=== PATIENT | male | born 1990 | race African-American/Black ===

== ENCOUNTER 2017-02-23 15:37 | Emergency (ER) | payer SELFPAY ==
[2017-02-23 15:47] VITALS: BP 166/95
[2017-02-23] MEDS ORDERED: KETOROLAC TROMETHAMINE 0.45% 4 DROP/0.4 ML DROPERETTE OD ONE (16:08)
--- NOTE | 2017-02-23 16:15 | ER Document Report ---
ED Eye Complaint - General Chief Complaint: Eye Pain Stated Complaint: EYE PAIN Time Seen by Provider: 02/23/17 16:03 Notes: 27 yo male c/o right eye burning x several hours. pt washed contact with eye care plus cleaning solution and replaced contact into eye. eye immediately started burning. TRAVEL OUTSIDE OF THE [place] IN LAST 30 DAYS: No - HPI Onset: Just prior to arrival Occurred at: Home Quality of pain: Burning Contact lenses: Soft Associated symptoms: Burning, Other - tearing. denies: Eyelid swelling, Orbital swelling - Related Data Allergies/Adverse Reactions: No Known Allergies Allergy (Verified 02/23/17 15:45) Past Medical History - General Information source: Patient - Social History Smoking Status: Never Smoker Drug Abuse: None Lives with: Family Family History: Reviewed & Not Pertinent - Past Medical History Cardiac Medical History: Denies: Hx Coronary Artery Disease, Hx Heart Attack, Hx Hypertension Pulmonary Medical History: Denies: Hx Asthma, Hx Bronchitis, Hx COPD, Hx Pneumonia Neurological Medical History: Denies: Hx Cerebrovascular Accident Renal/ Medical History: Denies: Hx Peritoneal Dialysis Musculoskeltal Medical History: Denies Hx Arthritis - Immunizations Hx Diphtheria, Pertussis, Tetanus Vaccination: Yes Review of Systems - Review of Systems Constitutional: No symptoms reported EENT: Eye pain, Tearing Cardiovascular: No symptoms reported Respiratory: No symptoms reported Gastrointestinal: No symptoms reported Genitourinary: No symptoms reported Male Genitourinary: No symptoms reported Musculoskeletal: No symptoms reported Skin: No symptoms reported Hematologic/Lymphatic: No symptoms reported Neurological/Psychological: No symptoms reported Physical Exam - Vital signs Vitals: Temp Pulse Resp BP Pulse Ox 98.1 F 80 16 166/95 H 99 02/23/17 15:45 02/23/17 15:45 02/23/17 15:45 02/23/17 15:45 02/23/17 15:45 Interpretation: Normal - General General appearance: Appears well, Alert - HEENT Head: Normocephalic, Atraumatic Eyes: Other - right conjunctiva with marked injection. + tearing. no flourescen uptake. no periorbital edema Extraocular movements intact: Yes Pupils: PERRL Lids everted for exam: right: Normal Mucous membranes: Normal, Moist Pharynx: Normal Neck: Normal, Supple - Respiratory Respiratory status: No respiratory distress Chest status: Nontender Breath sounds: Normal Chest palpation: Normal - Cardiovascular Rhythm: Regular Heart sounds: Normal auscultation Murmur: No - Abdominal Inspection: Normal Distension: No distension Bowel sounds: Normal Tenderness: Nontender Organomegaly: No organomegaly - Back Back: Normal, Nontender - Extremities General upper extremity: Normal inspection, Nontender, Normal color, Normal ROM , Normal temperature General lower extremity: Normal inspection, Nontender, Normal color, Normal ROM , Normal temperature, Normal weight bearing. No: Jasvir's sign - Neurological Neuro grossly intact: Yes Cognition: Normal Orientation: AAOx4 [place] Coma Scale Eye Opening: Spontaneous [place] Coma Scale Verbal: Oriented [place] Coma Scale Motor: Obeys Commands Nidhi Coma Scale Total: 15 Speech: Normal Motor strength normal: LUE, RUE, LLE, RLE Sensory: Normal - Psychological Associated symptoms: Normal affect, Normal mood - Skin Skin Temperature: Warm Skin Moisture: Dry Skin Color: Normal Course - Re-evaluation Re-evalutation: 02/23/17 16:24 eye copiously irrigated with normal saline. acuvail drops applied to eye. pt reports improvement of pain. discussed patient with Dr Kitchen. Recommends Rx Acular and opthomology follow up tomorrow. pt agreeable with plan. stable for discharge - Vital Signs Vital signs: Temp Pulse Resp BP Pulse Ox 98.1 F 80 16 166/95 H 99 02/23/17 15:45 02/23/17 15:45 02/23/17 15:45 02/23/17 15:45 02/23/17 15:45 Discharge - Discharge Clinical Impression: Chemical conjunctivitis Qualifiers: Laterality: right Qualified Code(s): H10.211 - Acute toxic conjunctivitis, right eye Condition: Stable Disposition: HOME, SELF-CARE Instructions: Ketorolac Tromethamine Eye Drops ([facility]) Additional Instructions: use eye drops as prescribed follow up with opthomology tomorrow if not significantly better no contacts until eye is completely better Prescriptions: Ketorolac Tromethamine [Acular] 1 drop OD Q6H PRN #1 bottle PRN Reason: Forms: Elevated Blood Pressure, Return to Work
== END 2017-02-23 16:28 | disposition home or self-care (01) ==
LOC: ER 15:37
DX: H10.211 Acute toxic conjunctivitis, right eye (principal); H57.11 Ocular pain, right eye
CPT/HCPCS: 99283

== ENCOUNTER → 2018-01-01 | Outpatient (CLI) | payer OTHER ==
[2018-01-01 15:06] LABS: HEMATOCRIT 30.9 % (37.9-51.0); MEAN CORPUSCULAR HEMOGLOBIN 22.8 pg (27.0-33.4); MEAN CORPUSCULAR HGB CONC 32.2 g/dL (32.0-36.0); MEAN CORPUSCULAR VOLUME 71 fl (80-97); PLATELET COUNT 155 10^3/uL (150-450); RED BLOOD COUNT 4.37 10^6/uL (4.35-5.55); RED CELL DISTRIBUTION WIDTH 21.8 % (11.5-14.0); WHITE BLOOD COUNT 3.3 10^3/uL (4.0-10.5)
[2018-01-01 15:32] LABS: ANION GAP 17 (5-19); BLOOD UREA NITROGEN 114 mg/dL (7-20); CALCIUM 9.4 mg/dL (8.4-10.2); CARBON DIOXIDE 23 mmol/L (22-30); CHLORIDE 102 mmol/L (98-107); GLUCOSE 70 mg/dL (75-110); POTASSIUM 4.5 mmol/L (3.6-5.0)
[2018-01-02 11:40] LABS: HEPATITIS B CORE AB TOT Negative (Negative)
[2018-01-05 11:38] LABS: HEPATITIS C VIRUS AB 0.1 s/co ratio (0.0-0.9)
[2018-01-05 13:00] LABS: HEPATITIS B SURFACE AB QUANT 9.7 mIU/mL (Immunity>9); HEPATITS B SURFACE ANTIGEN Negative (Negative)
== END ==
LOC: OD 14:00
PROVIDERS: ATTEND Internal Medicine Nephrology
DX: I12.0 Hypertensive chronic kidney disease with stage 5 chronic kidney disease or end stage renal disease (principal); N18.5 Chronic kidney disease, stage 5; D64.9 Anemia, unspecified; N04.9 Nephrotic syndrome with unspecified morphologic changes
CPT/HCPCS: 36415; 80048; 85027; 86317; 86704; 86803; 86804; 87340

== ENCOUNTER 2018-01-06 07:57 | Day surgery (SDC) | payer OTHER ==
[2017-12-30 11:01] LABS: HEMATOCRIT 35.1 % (37.9-51.0); HEMOGLOBIN 11.2 g/dL (13.5-17.0); MEAN CORPUSCULAR HEMOGLOBIN 22.7 pg (27.0-33.4); MEAN CORPUSCULAR HGB CONC 31.9 g/dL (32.0-36.0); MEAN CORPUSCULAR VOLUME 71 fl (80-97); PLATELET COUNT 189 10^3/uL (150-450); RED BLOOD COUNT 4.93 10^6/uL (4.35-5.55); RED CELL DISTRIBUTION WIDTH 22.2 % (11.5-14.0); WHITE BLOOD COUNT 3.4 10^3/uL (4.0-10.5)
[2017-12-30 11:26] LABS: CALCIUM 9.5 mg/dL (8.4-10.2); GLUCOSE 110 mg/dL (75-110)
[2017-12-30 11:31] LABS: CARBON DIOXIDE 23 mmol/L (22-30); CHLORIDE 100 mmol/L (98-107); SODIUM 145.6 mmol/L (137-145)
[2017-12-30 11:36] LABS: ANION GAP 23 (5-19)
[2017-12-30 11:37] LABS: BLOOD UREA NITROGEN 123 mg/dL (7-20)
--- NOTE | 2017-12-30 13:42 | EKG REPORT ---
SEVERITY:- BORDERLINE ECG - SINUS RHYTHM PROBABLE LEFT ATRIAL ABNORMALITY BORDERLINE LEFT AXIS DEVIATION : Confirmed by: Jeremi Ambriz MD 30-Dec-2017 13:41:18
[~2018-01-06 07:57] MED LIST: BACITRACIN INJ 50,000 UNIT VIAL ONE; BUPIVACAINE HCL 0.25 % INJ/PF (2.5 MG/1 ML) 30 ML VIAL ONE; CEFAZOLIN 1 GM/D5W RTU 1 GM/50 ML RTUPB IV PRN; HEPARIN SOD (PORCINE) 1,000 UNIT/ML 1 ML VIAL ONE; LACTATED RINGERS 1000 ML IV PRN; LIDOCAINE 0.5% INJ-PF (5 MG/ML) 50 ML SDV ONE; LIDOCAINE 0.5% INJ-PF (5 MG/ML) 50 ML SDV SUBCUT PRN; NORMAL SALINE 1000 ML (RENAL PATIENTS) IV PRN
[2018-01-06] MEDS ORDERED: GLYCOPYRROLATE INJ 0.4 MG/2 ML VIAL ONE (09:29)
[2018-01-06] MEDS ORDERED: VECURONIUM BROMIDE INJ 10 MG VIAL IV ONE (09:29)
[2018-01-06] MEDS ORDERED: NEOSTIGMINE METHYLSULFATE 10 MG/10 ML VIAL ONE (09:29)
[2018-01-06] MEDS ORDERED: SUCCINYLCHOLINE CHLORIDE INJ 200 MG/10 ML VIAL ONE (09:29)
[2018-01-06] MEDS ORDERED: FENTANYL CITRATE INJ/PF 250 MCG/5 ML AMPULE ONE (10:29)
[2018-01-06] MEDS ORDERED: LIDOCAINE 2% INJ-PF (20 MG/ML) 10 ML AMPUL ONE (10:29)
[2018-01-06] MEDS ORDERED: MIDAZOLAM 2 MG/2 ML INJ ONE (10:30)
[2018-01-06] MEDS ORDERED: ONDANSETRON HCL INJ/PF 4 MG/2 ML SDV ONE (10:30)
[2018-01-06] MEDS ORDERED: PROPOFOL INJ 200 MG/20 ML VIAL IV ONE (10:30)
[2018-01-06] MEDS ORDERED: PROMETHAZINE HCL INJ 25 MG/1 ML VIAL IV PRN ×2 (11:09)
[2018-01-06] MEDS ORDERED: MEPERIDINE HCL/PF INJ 25 MG/1 ML DISP.SYRIN IV PRN (11:09)
[2018-01-06] MEDS ORDERED: FENTANYL CITRATE INJ/PF 100 MCG/2 ML AMPUL IV PRN ×3 (11:09)
[2018-01-06] MEDS ORDERED: ONDANSETRON HCL INJ/PF 4 MG/2 ML SDV IV PRN (11:09)
[2018-01-06] MEDS ORDERED: MORPHINE SULFATE 10 MG/ML INJ IV PRN (11:09)
[2018-01-06] MEDS ORDERED: DIPHENHYDRAMINE HCL 50 MG/ML VIAL IV PRN (11:09)
[2018-01-06] MEDS ORDERED: OXYCODONE-ACETAMINOPHEN 5-325 MG TABLET PO PRN ×2 (11:09)
--- NOTE | 2018-01-06 11:51 | Discharge Summary ---
Discharge Summary (SDC) - Discharge Final Diagnosis: End-stage renal disease. Hypertension. Date of Surgery: 01/06/18 Discharge Date: 01/06/18 Condition: Good Treatment or Instructions: Discharge home [after recovery per ASU criteria]. Diet , [renal],as tolerated, when fully awake advance as tolerated. Activities within moderation encouraged. Follow up in my office by appointment in about [1 week]. Call for appointment. Leave wounds [covered], [keep clean and dry, until office visit in 1 week]. Hold of on school/work [until evaluation in office]. Meds per med rec. Percocet. May shower [in 48 hrs], [try to keep operated area as dry as possible]. Prescriptions: Oxycodone HCl/Acetaminophen [Percocet 5-325 mg Tablet] 1 tab PO ASDIR PRN #15 tab PRN Reason: Discharge Diet: Other (Comments) - Renal. Respiratory Treatments at Home: Deep Breathing/Coughing Discharge Activity: Activity As Tolerated Report the Following to Your Physician Immediately: Unusual Bleeding
--- NOTE | 2018-01-06 11:53 | Operative Report ---
Operative Report DATE OF SURGERY: 01/06/18 PREOPERATIVE DIAGNOSIS: End-stage renal disease. Hypertension. POSTOPERATIVE DIAGNOSIS: End-stage renal disease. Hypertension. OPERATION: Laparoscopic insertion of peritoneal dialysis catheter. SURGEON: ARMOND GOLDBERG STRAPPER OPERATOR: ZO TAPIA ANESTHESIA: GA TISSUE REMOVED OR ALTERED: Not applicable. COMPLICATIONS: None. ESTIMATED BLOOD LOSS: 10 mL. INTRAOPERATIVE FINDINGS: A fairly pristine abdomen. Small omentum. Some adhesions of sigmoid colon to left lower quadrant appreciated. Very filmy. Satisfactory position with coil of the catheter nicely down in the pelvis. Easy ingress of heparinized solution. Egress of 700 mils of heparinized solution. Photographs taken. PROCEDURE: After obtaining informed consent and going over the procedure with [the patient and his family], he was taken to the operating room, [he was] anesthetized and intubated. The abdomen was prepped and draped in the usual sterile fashion. After the universal timeout, in which it was verified that the patient received IV antibiotic, the procedure commenced. The topographical location for the peritoneal dialysis catheter was sketched by applying it to the anterior abdominal wall. The reference point was the pubic symphysis the coil of the catheter, just beneath this level. In this way the position for the cuffs and the external catheter exit were ascertained and marked. The catheter was now replaced in antibiotic containing solution. An entry into the abdomen was sketched just to the right of the midline and transversely in the epigastrium. Local anesthesia was infiltrated. A 1 cm, transverse incision was made with a [15 blade scalpel]. Dissection now proceeded to the medial aspect of the right rectus sheath. This was opened and the muscle gently reflected. The posterior rectus sheath and peritoneum were opened between hemostats and entry was gained to the peritoneal cavity. This allowed introduction of a 5 mm laparoscopic port. The abdomen was now insufflated with carbon dioxide up to a maximum pressure of 12 mm of mercury. The camera was inserted and a good view gained of the abdomen. Photographs were taken. Local anesthesia was now infiltrated and an incision made in respect to the curve of the catheter. A 1 cm transverse incision was made at this point and dissection proceeded down to the rectus sheath. This was opened and a Veress needle on a reducing sleeve were were now introduced through the rectus muscle and the manipulated down to about 4 cm inferior to the incision. The peritoneum was now entered and the Veress needle removed. The internal cannula was now placed under direct vision. A swan neck peritoneal dialysis catheter was now placed on a stylette. Great care was taken to keep the orientation in reference to the white line on the catheter. It was now inserted into the peritoneal cavity under direct vision, through the introducer. As the catheter entered the abdomen the stylette was slowly withdrawn allowing it to assume its normal orientation and shape within the peritoneal cavity. Both the stylet and introducer were removed so as to place the internal cuff about 3 cm from the entry point of the peritoneal cavity, and within the rectus sheath. This was verified with respect to the incision. The external curve of the catheter was allowed to form precisely at the level of the incision. Externally the catheter was affixed to a Elisa stylette which was now used to tunnel the catheter in the subcutaneous tissues to its exit site where it was now used to exit the skin. The catheter orientation and position and, particularly the 2 cuffs of the catheter were verified. Once this was done the external portion of the catheter was affixed to a Leur lock adapter and connected to a sterile IV tubing. This allowed introduction of 1 L of heparinized saline into the peritoneal cavity via the catheter. This occurred with brisk and free flow of fluid into the peritoneal cavity. Once the entire liter had been infused, the bag was now placed beneath the level of the patient and very satisfactory outflow was observed. With this in place, the camera and the catheter were removed and abdomen desufflated. The subcutaneous tissue in each incision was closed with interrupted 3-0 PDS. The skin in each incision was closed using interrupted and continuous sutures of 4-0 Monocryl. Once about 800 mils of the Infusaid had been passively removed from the abdomen, the catheter was flushed with 10 mL of heparinized solution and capped. The bio a patch was applied at the exit site. Benzoin was applied and Steri-Strips used to reinforce each of the wounds. It was also used to help anchor the Biopatch. It was also used to anchor the main catheter so that any external pressure would not dislodge the catheter. Dry gauze and tape applied and the procedure concluded.
[2018-01-06] MEDS ORDERED: ONDANSETRON 4 MG TAB.RAPDIS ONE (15:23)
[2018-01-06 16:04] VITALS: BP 139/76
== END 2018-01-06 16:00 | disposition home or self-care (01) ==
LOC: OROUT 07:57
PROVIDERS: ATTEND Surgery
DX: I12.0 Hypertensive chronic kidney disease with stage 5 chronic kidney disease or end stage renal disease (principal); D63.1 Anemia in chronic kidney disease; N18.6 End stage renal disease; Z79.899 Other long term (current) drug therapy
CPT/HCPCS: 93005; 36415 ×2; 84132; 85027; 80048; 93010; 49324; J2250; J3490 ×4; J0690; S0119; J3010; J1644; J0330; J2405; J2704; J1642; 1844

== ENCOUNTER 2018-01-11 05:44 | Emergency (ER) | payer OTHER ==
[2018-01-11] MEDS ORDERED: NORMAL SALINE 250 ML IV ONE (06:27)
[2018-01-11 06:46] LABS: HEMATOCRIT 31.7 % (37.9-51.0); HEMOGLOBIN 10.3 g/dL (13.5-17.0); MEAN CORPUSCULAR HGB CONC 32.4 g/dL (32.0-36.0); MEAN CORPUSCULAR VOLUME 71 fl (80-97); PLATELET COUNT 185 10^3/uL (150-450); RED BLOOD COUNT 4.46 10^6/uL (4.35-5.55); WHITE BLOOD COUNT 14.5 10^3/uL (4.0-10.5)
--- NOTE | 2018-01-11 06:52 | ER Document Report ---
ED General - General Chief Complaint: Fever Stated Complaint: FEVER Time Seen by Provider: 01/11/18 06:09 TRAVEL OUTSIDE OF THE [place] IN LAST 30 DAYS: No - HPI Patient complains to provider of: Fever Notes: Patient coming in for evaluation of fever. Patient states T-max at home was 101. Patient is postop day 5 from have a peritoneal dialysis catheter placed here in the hospital. Other than end-stage renal disease patient denies any other medical issues. Patient denies any other symptoms except for some diarrhea. Patient denies recent antibiotics. Patient upon his evaluation here has a temperature of 100 denies any recent Tylenol Motrin denies chills night sweats cough nausea vomiting dysuria - Related Data Allergies/Adverse Reactions: No Known Allergies Allergy (Verified 12/30/17 09:46) Past Medical History - Social History Smoking Status: Never Smoker Chew tobacco use (# tins/day): No Frequency of alcohol use: None Drug Abuse: None Family History: Reviewed & Not Pertinent Patient has suicidal ideation: No Patient has homicidal ideation: No - Past Medical History Cardiac Medical History: Reports: Hx Hypertension - ON MEDS Denies: Hx Coronary Artery Disease, Hx Heart Attack Pulmonary Medical History: Denies: Hx Asthma, Hx Bronchitis, Hx COPD, Hx Pneumonia Neurological Medical History: Denies: Hx Cerebrovascular Accident, Hx Seizures Renal/ Medical History: Reports: Hx Peritoneal Dialysis - Cath Placed. Musculoskeltal Medical History: Denies Hx Arthritis Past Surgical History: Reports: Hx Abdominal Surgery - PF Shut Placed - Immunizations Hx Diphtheria, Pertussis, Tetanus Vaccination: No Review of Systems - Review of Systems Constitutional: Fever EENT: No symptoms reported Cardiovascular: No symptoms reported Respiratory: No symptoms reported Gastrointestinal: No symptoms reported Genitourinary: No symptoms reported Male Genitourinary: No symptoms reported Musculoskeletal: No symptoms reported Skin: No symptoms reported Hematologic/Lymphatic: No symptoms reported Neurological/Psychological: No symptoms reported -: Yes All other systems reviewed and negative Physical Exam - Vital signs Vitals: Temp Pulse Resp BP Pulse Ox 100 F 84 18 132/64 H 100 01/11/18 05:48 01/11/18 05:48 01/11/18 05:48 01/11/18 05:48 01/11/18 05:48 Interpretation: Normal - General General appearance: Appears well, Alert - HEENT Head: Normocephalic, Atraumatic Eyes: Normal Pupils: PERRL - Respiratory Respiratory status: No respiratory distress Chest status: Nontender Breath sounds: Normal Chest palpation: Normal - Cardiovascular Rhythm: Regular Heart sounds: Normal auscultation Murmur: No - Abdominal Inspection: Normal Distension: No distension Bowel sounds: Normal Tenderness: Nontender, Other - Patient with some slight bruising of blood around the PD catheter insertion site however there is no signs of infection or purulent drainage no erythema skin changes surgical wounds look to be stable Organomegaly: No organomegaly - Back Back: Normal, Nontender - Extremities General upper extremity: Normal inspection, Nontender, Normal color, Normal ROM , Normal temperature General lower extremity: Normal inspection, Nontender, Normal color, Normal ROM , Normal temperature, Normal weight bearing. No: Jasvir's sign - Neurological Neuro grossly intact: Yes Cognition: Normal Orientation: AAOx4 [place] Coma Scale Eye Opening: Spontaneous [place] Coma Scale Verbal: Oriented [place] Coma Scale Motor: Obeys Commands [place] Coma Scale Total: 15 Speech: Normal Motor strength normal: LUE, RUE, LLE, RLE Sensory: Normal - Psychological Associated symptoms: Normal affect, Normal mood - Skin Skin Temperature: Warm Skin Moisture: Dry Skin Color: Normal Course - Re-evaluation Re-evalutation: 01/11/18 06:58 Patient upon evaluation looks nontoxic. Will check urine CBC will send off blood cultures will also get a chest x-ray. Otherwise patient looks very well will discussed patient's case with his physicians. 01/11/18 08:29 Still currently waiting for the patient's benefits specialist the patient identifies his primary care to call back 01/11/18 14:15 Did discuss case with Dr. Santacruz at this time patient is nontoxic requesting no recent blood cultures urine cultures and also take a swab from the patient's PD catheter. The swab of the PD catheter was performed underneath the Biopatch with cleaning of the tissue outside the Biopatch with alcohol personally performed as well. Again the site does not look infected there is a little bit of oozing of blood that is old. Patient resting calmly no signs of any significant pathology. Patient per Dr. Santacruz's request will be started on Keflex 500 mg 3 times daily. We will also treat the patient's potassium 5.5 and Kayexalate. Patient was given information to have stool testing done at home. Otherwise patient looked again looks nontoxic looks to be good candidate for outpatient follow-up for cultures prophylactic antibiotic of Keflex - Vital Signs Vital signs: Temp Pulse Resp BP Pulse Ox 100.1 F 98 18 142/72 H 100 01/11/18 10:51 01/11/18 10:51 01/11/18 10:51 01/11/18 10:51 01/11/18 10:51 - Laboratory Result Diagrams: 01/11/18 06:35 01/11/18 06:35 Laboratory results interpreted by me: 01/11/18 01/11/18 01/11/18 06:35 06:35 06:35 WBC 14.5 H Hgb 10.3 L Hct 31.7 L MCV 71 L MCH 23.0 L RDW 22.0 H Seg Neuts % (Manual) 88 H Lymphocytes % (Manual) 3 L Abs Neuts (Manual) 12.8 H Abs Lymphs (Manual) 0.4 L Potassium 5.5 H BUN 114 H Creatinine 17.00 H Est GFR ( Amer) 4 L Est GFR (Non-Af Amer) 3 L Glucose 111 H AST 13 L ALT 17 L Urine Protein 100 H Urine Blood SMALL H Discharge - Discharge Clinical Impression: End stage renal disease Fever Qualifiers: Fever type: unspecified Qualified Code(s): R50.9 - Fever, unspecified Condition: Good Disposition: HOME, SELF-CARE Instructions: Fever ([facility]) Additional Instructions: Your laboratory studies at this time do not show any signs of infection. I did discuss your case with your benefits specialist Dr. Jb Santacruz. At this time we will wait for culture results to return while we are pending culture results we will start you on antibiotic called Keflex. Please take this as directed. Please call his office Friday to schedule follow-up appointment. Return to ER if any symptoms worsen. Your potassium today was slightly elevated we will give you a medication called Kayexalate that will help lower your potassium. This will cause you to have loose stools. Because of your loose stools you have prior to your ER visit I would recommend obtaining a stool sample during returning for further testing. Prescriptions: Cephalexin Monohydrate [Keflex 500 mg Capsule] 500 mg PO Q8 7 Days capsule Forms: Follow-Up Outpatient Testing
--- NOTE | 2018-01-11 06:55 | RADIOLOGY REPORT (SQ) ---
Clinical History : sob , Exam : PA and lateral views of the chest 01/11/2018 6:26 AM CDT Comparisons : none Findings : The lungs are clear without focal consolidation or pleural effusion. The heart is normal in size. The mediastinal contours are normal in appearance. The thoracic spine is age appropriate. The shoulders are unremarkable. Limited evaluation of the upper abdomen demonstrates no gross abnormalities. Impression: No acute cardiopulmonary disease
[2018-01-11 06:59] LABS: ALANINE AMINOTRANSFERASE 17 U/L (21-72); ALBUMIN 4.1 g/dL (3.5-5.0); ALKALINE PHOSPHATASE 40 U/L (38-126); ANION GAP 16 (5-19); ASPARTATE AMINO TRANSFERASE 13 U/L (17-59); BILIRUBIN,DIRECT 0.4 mg/dL (0.0-0.4); BILIRUBIN,TOTAL 0.4 mg/dL (0.2-1.3); BLOOD UREA NITROGEN 114 mg/dL (7-20); CALCIUM 9.4 mg/dL (8.4-10.2); CARBON DIOXIDE 22 mmol/L (22-30); CHLORIDE 102 mmol/L (98-107); GLUCOSE 111 mg/dL (75-110); LIPASE 154.7 U/L (23-300); POTASSIUM 5.5 mmol/L (3.6-5.0); SODIUM 139.9 mmol/L (137-145); TOTAL PROTEIN 6.9 g/dL (6.3-8.2)
[2018-01-11 07:15] LABS: ABSOLUTE LYMPHOCYTES# (MANUAL) 0.4 10^3/uL (0.5-4.7); ABSOLUTE MONOCYTES # (MANUAL) 1.2 10^3/uL (0.1-1.4); ABSOLUTE NEUTROPHILS# (MANUAL) 12.8 10^3/uL (1.7-8.2); BASOPHILS % (MANUAL) 1 % (0-2); EOSINOPHILS % (MANUAL) 0 % (0-6); LYMPHOCYTES % (MANUAL) 3 % (13-45); MONOCYTES % (MANUAL) 8 % (3-13); SEGMENTED NEUTROPHILS % (MAN) 88 % (42-78); TOTAL CELLS COUNTED 100
[2018-01-11 07:20] LABS: ANISOCYTOSIS 3+; HYPOCHROMASIA 2+
[2018-01-11 07:21] LABS: OVALOCYTES 1+; PLATELET COMMENT ADEQUATE; POIKILOCYTOSIS 2+; SICKLE RED CELLS 1+
[2018-01-11 08:11] LABS: APPEARANCE,URINE CLEAR; BILIRUBIN,URINE NEGATIVE (NEGATIVE); COLOR,URINE YELLOW; GLUCOSE, URINE NEGATIVE (NEGATIVE); KETONES,URINE NEGATIVE (NEGATIVE); LEUKOCYTE ESTERASE,URINE NEGATIVE (NEGATIVE); NITRITE,URINE NEGATIVE (NEGATIVE); PROTEIN,URINE 100 mg/dL (NEGATIVE); URINE SPECIFIC GRAVITY 1.012; UROBILINOGEN,URINE NEGATIVE mg/dL (<2.0)
[2018-01-11] MEDS ORDERED: CEPHALEXIN 500 MG CAPSULE PO ONE (09:54)
[2018-01-11] MEDS ORDERED: SODIUM POLYSTYRENE SULFONATE 15 GM/60 ML PO ONE (09:56)
[2018-01-11 10:52] VITALS: BP 142/72
== END 2018-01-11 10:52 | disposition home or self-care (01) ==
LOC: ER 05:44
DX: N18.6 End stage renal disease (principal); I12.0 Hypertensive chronic kidney disease with stage 5 chronic kidney disease or end stage renal disease; R50.9 Fever, unspecified; Z99.2 Dependence on renal dialysis
CPT/HCPCS: 36415; 71046; 80053; 81001; 83605; 83690; 85025; 87040; 87070; 87086; 87205; 99284

== ENCOUNTER → 2018-01-16 | Outpatient (CLI) | payer OTHER ==
[2018-01-16 12:32] LABS: HEMATOCRIT 33.2 % (37.9-51.0); HEMOGLOBIN 11.1 g/dL (13.5-17.0); MEAN CORPUSCULAR HEMOGLOBIN 23.3 pg (27.0-33.4); MEAN CORPUSCULAR HGB CONC 33.3 g/dL (32.0-36.0); MEAN CORPUSCULAR VOLUME 70 fl (80-97); PLATELET COUNT 246 10^3/uL (150-450); RED BLOOD COUNT 4.75 10^6/uL (4.35-5.55); RED CELL DISTRIBUTION WIDTH 21.7 % (11.5-14.0); WHITE BLOOD COUNT 7.8 10^3/uL (4.0-10.5)
[2018-01-16 12:50] LABS: ANION GAP 18 (5-19); CALCIUM 9.8 mg/dL (8.4-10.2); CARBON DIOXIDE 19 mmol/L (22-30); CHLORIDE 103 mmol/L (98-107); GLUCOSE 135 mg/dL (75-110); PHOSPHORUS 6.5 mg/dL (2.5-4.5); POTASSIUM 4.6 mmol/L (3.6-5.0); SODIUM 139.9 mmol/L (137-145)
[2018-01-16 13:22] LABS: BLOOD UREA NITROGEN 126 mg/dL (7-20)
[2018-01-16 14:43] LABS: APPEARANCE,URINE SLIGHTLY-CLOUDY; BILIRUBIN,URINE NEGATIVE (NEGATIVE); COLOR,URINE YELLOW; GLUCOSE, URINE 50 mg/dL (NEGATIVE); KETONES,URINE NEGATIVE (NEGATIVE); LEUKOCYTE ESTERASE,URINE NEGATIVE (NEGATIVE); NITRITE,URINE NEGATIVE (NEGATIVE); PROTEIN,URINE 100 mg/dL (NEGATIVE); URINE SPECIFIC GRAVITY 1.011; UROBILINOGEN,URINE NEGATIVE mg/dL (<2.0)
== END ==
LOC: OD 12:00
PROVIDERS: ATTEND Physician Assistant Medical
DX: I12.0 Hypertensive chronic kidney disease with stage 5 chronic kidney disease or end stage renal disease (principal); N18.5 Chronic kidney disease, stage 5; R80.9 Proteinuria, unspecified; D64.9 Anemia, unspecified
CPT/HCPCS: 36415; 80048; 81001; 83970; 84100; 85027

== ENCOUNTER → 2019-02-16 | Outpatient (CLI) | payer OTHER ==
--- NOTE | 2019-02-16 17:16 | RADIOLOGY REPORT (SQ) ---
EXAM DESCRIPTION: U/S RETROPERITON (RENAL/AORTA) COMPLETED DATE/TIME: 02/16/2019 2:53 pm REASON FOR STUDY: DIFFICULT URINATION COMPARISON: Bilateral renal ultrasound 12/17/2012 TECHNIQUE: Dynamic and static grayscale images acquired of the kidneys and bladder and recorded on P ACS. Additional selected color Doppler and spectral images recorded. LIMITATIONS: None. FINDINGS: RIGHT KIDNEY: Right kidney is 9 cm in length, markedly echogenic. No hydronephrosis or st ones. No masses or cysts. LEFT KIDNEY: Left kidney is 8.6 cm in length, markedly echogenic. No hydronephrosis or stones. No masses or cysts. BLADDER: Prevoid bladder volume 20 mL. Postvoid bladder volume 2 mL OTHER FINDINGS: Small amount of free pelvic fluid. IMPRESSION: Echogenic kidneys without hydronephrosis. Prevoid bladder volume 20 mL, postvoid bladder volume 2 mL TECHNICAL DOCUMENTATION: JOB ID: [id number] [employer]- All Rights Reserved Reading location - IP/workstation name: [email or web address]
== END ==
LOC: RAD 13:49
PROVIDERS: ATTEND Internal Medicine Nephrology
DX: R39.198 Other difficulties with micturition (principal)
CPT/HCPCS: 76770